=== PATIENT | male | born 1980 | race Caucasian/White ===

== ENCOUNTER 2024-08-19 01:47 | Observation (INO) ==
[2024-08-19 02:18] LABS: Basophils # (auto) 0.06 K/uL (0.00-0.20); Basophils % (auto) 0.5 %; Eosinophils # (auto) 0.36 K/uL (0.00-0.50); Eosinophils % (auto) 3.2 %; Hematocrit (blood only) 45.1 % (42.0-52.0); Hemoglobin 15.7 g/dl (14.0-18.0); Immature Granulocytes # (auto) 0.03 K/uL (0.01-0.20); Immature Granulocytes % (auto) 0.3 %; Lymphocytes # (auto) 2.62 K/uL (1.20-3.40); Lymphocytes % (auto) 23.4 %; Mean Corpuscular Hgb Conc 34.8 g/dL (32.0-36.0); Mean Platelet Volume 9.3 fL (9.4-12.4); Monocytes # (auto) 0.78 K/uL (0.11-0.59); Neutrophils # (auto) 7.35 K/uL (1.40-6.50); Neutrophils % (auto) 65.6 %; Platelet Count 357 K/uL (130-400); RDW Coefficient of Variation 12.2 % (11.5-14.5); RDW Standard Deviation 39.8 fL (36.4-46.3); Red Blood Count 5.07 M/uL (4.70-6.10)
[2024-08-19] MEDS: MoRPHine SULFATE 4 MG/ML 1 ML CARP\\VIAL IV PRN (02:21)
[2024-08-19] MEDS: ONDANSETRON INJ 2 MG/ML 2 ML VIAL IV STA (02:21)
[2024-08-19] MEDS: OPTIRAY 320 100ml IV ONE (02:32)
[2024-08-19 02:36] LABS: iSTAT Creatinine 0.8 mg/dl (0.6-1.3); iSTAT Hemoglobin 15.6 g/dl (14.0-18.0); iSTAT Ionized Calcium 1.23 mmol/l (1.12-1.32); iSTAT Potassium 3.9 mmol/L (3.3-5.0)
[2024-08-19 02:42] LABS: Albumin Globulin Ratio 1.5 (0.9-2); Albumin Level 4.5 gm/dl (3.4-5.0); BUN Creatinine Ratio 18.2 (10-20); Bilirubin,Total 0.4 mg/dl (0.2-1.0); Calcium 9.5 mg/dl (8.6-10.3); Globulin 3.1 gm/dl (2.5-4.0); Potassium 3.9 mmol/L (3.5-5.1); Total Protein 7.6 gm/dl (6.0-8.3)
[2024-08-19 02:48] LABS: Troponin I High Sensitivity 4.8 pg/ml (0-20)
[2024-08-19] MEDS: PANTOprazole 40 MG in SYRINGE 0 ML IV ONE (03:03)
--- NOTE | 2024-08-19 05:32 | Emergency Department Note ---
History of Present Illness General Chief complaint: Chest Pain Stated complaint: CHEST PAIN AND BACK,HARD TO BREATHE Time Seen by Provider: 08/19/24 01:50 History of Present Illness Maximum Pain Intensity: 7 This is a 43-year-old male presenting to the emergency department for evaluation of chest and abdominal pain. Patient was seen essentially yesterday in the ER with identical complaints. He had blood work at that time and was offered CT scan, but did not feel well after medication and was discharged home. Patient states that over the past 24 hours he has had some intermittent return of pain that is primarily across the upper abdomen. This is both left and right sided. It is difficult for him to determine if food improves or worsen symptoms. His discomfort is rated a 7/10. He does not take medication on a regular basis. He is nauseated without vomiting. No difficulty using the bathroom. Home Medications Medication Instructions Recorded Confirmed Type multivitamin (Daily Multi-Vitamin 1 tab PO QAM 06/07/21 08/17/24 History tablet) Allergies Allergy/AdvReac Type Severity Reaction Status Date / Time cat dander Allergy Intermediate sneezing, Unverified 08/17/24 23:33 itchy watery eyes strawberry Allergy Intermediate Hives Unverified 08/17/24 23:33 Past Med/Surg History Problem List (Updated 08/19/24 @ 07:04 by Cong Duarte PA-C) Upper abdominal pain (Acute) Acute cholecystitis (Acute) Chest pain (Acute) Abdominal pain (Acute) Medical History No significant past medical history Surgical History No history of previous surgery Social History Smoking Status: Current every day smoker Tobacco Type: Cigarettes Preferred Language: [place] Island[place] Feels Safe at Home: Yes Review of Systems A total of 10 systems reviewed and were otherwise negative Physical Exam Vital Signs Vital Signs - 24 hr 08/19/24 01:49 08/19/24 01:57 08/19/24 02:07 Temperature 36.8 C Temperature Source Temporal Artery Scan Pulse Rate 77 66 Pulse Rate [Apical] Respiratory Rate 19 Respiratory Effort / Characteristics Non-Labored Spontaneous Respiratory Depth Normal Respiratory Pattern Blood Pressure 196/106 H Blood Pressure [Right Arm] Blood Pressure Mean 136 Blood Pressure Mean [Right Arm] Blood Pressure Position [Right Arm] Pulse Oximetry 97 94 Oxygen Delivery Method Room Air Room Air Oxygen Flow Rate Sepsis Recent Fever Within 48 Hours No Sepsis New/Unexplained Change in Mental Status N/A Sepsis Action Taken by Nursing No Action Required 08/19/24 02:47 08/19/24 03:04 08/19/24 03:28 Temperature Temperature Source Pulse Rate Pulse Rate [Apical] 74 Respiratory Rate 18 Respiratory Effort / Characteristics Non-Labored Spontaneous Respiratory Depth Normal Respiratory Pattern Regular Blood Pressure Blood Pressure [Right Arm] 148/91 H Blood Pressure Mean Blood Pressure Mean [Right Arm] 110 Blood Pressure Position [Right Arm] Sitting Pulse Oximetry 92 94 88 L Oxygen Delivery Method Room Air Room Air Room Air Oxygen Flow Rate Sepsis Recent Fever Within 48 Hours Sepsis New/Unexplained Change in Mental Status Sepsis Action Taken by Nursing 08/19/24 03:29 08/19/24 04:44 08/19/24 05:00 Temperature Temperature Source Pulse Rate Pulse Rate [Apical] 50 L Respiratory Rate 18 Respiratory Effort / Characteristics Non-Labored Spontaneous Respiratory Depth Normal Respiratory Pattern Regular Blood Pressure Blood Pressure [Right Arm] 150/91 H Blood Pressure Mean Blood Pressure Mean [Right Arm] 110 Blood Pressure Position [Right Arm] Lying Pulse Oximetry 96 94 87 L Oxygen Delivery Method Nasal Cannula Room Air Room Air Oxygen Flow Rate 2 Sepsis Recent Fever Within 48 Hours Sepsis New/Unexplained Change in Mental Status Sepsis Action Taken by Nursing 08/19/24 05:03 08/19/24 06:09 Temperature Temperature Source Pulse Rate 50 L Pulse Rate [Apical] Respiratory Rate Respiratory Effort / Characteristics Respiratory Depth Respiratory Pattern Blood Pressure Blood Pressure [Right Arm] Blood Pressure Mean Blood Pressure Mean [Right Arm] Blood Pressure Position [Right Arm] Pulse Oximetry 96 Oxygen Delivery Method Nasal Cannula Oxygen Flow Rate 2 Sepsis Recent Fever Within 48 Hours Sepsis New/Unexplained Change in Mental Status Sepsis Action Taken by Nursing VITALS: Vitals are noted on the nurse's note and reviewed by myself. Vital signs stable. GENERAL: Well-developed, well-nourished, white male, who is in no acute distress and resting comfortably. Patient is cooperative with the examination. HEAD: Normocephalic atraumatic. EARS: External ear normal. External auditory canals clear, tympanic membranes pearly arnold without erythema or effusion bilaterally. EYES: Pupils equal round and reactive to light and accommodation. Conjunctivae without injection, sclerae without icterus. Extraocular movements intact. NOSE: Patent, turbinates without inflammation or discharge. MOUTH: Mucous membranes moist. Tonsils are not enlarged. Pharynx without erythema, blood, or exudate. Uvula midline. Airway patent. NECK: Supple without nuchal rigidity. No lymphadenopathy. No thyromegaly. Cervical spine is nontender. HEART: Regular rate and rhythm without murmurs gallops or rubs. LUNGS: Clear to auscultation bilaterally without wheezes, rales or rhonchi. No retractions or accessory muscle use. ABDOMEN: Positive normal bowel sounds x 4. Soft, nontender, without masses or organomegaly. No guarding or rebound tenderness. MUSCULOSKELETAL: No muscle atrophy, erythema, or edema noted. Full range of motion in all extremities. Course Administered Medications Morphine Sulfate (Morphine Sulfate 4 Mg/Ml 1 Ml Carp\Vial) 4 mg IV Q30M PRN PRN Reason: Pain Stop: 09/02/24 01:56 Last Admin: 08/19/24 02:21 Dose: 4 mg Documented By: CARLOS MANUEL Discontinued Medications Pantoprazole Sodium 40 mg/ (Syringe) 10 mls @ 5 mls/min IV NOW ONE Stop: 08/19/24 01:58 Last Admin: 08/19/24 03:03 Dose: 5 mls/min Documented By: CARLOS MANUEL Ioversol (Optiray 320 100ml) 100 ml IV ONCE ONE Stop: 08/19/24 02:32 Last Admin: 08/19/24 02:32 Dose: 93 ml Documented By: GLADIS Ondansetron HCl (Ondansetron Inj 2 Mg/Ml 2 Ml Vial) 4 mg IV NOW STA Stop: 08/19/24 01:58 Last Admin: 08/19/24 02:21 Dose: 4 mg Documented By: CARLOS MANUEL Medical Decision Making Differential Diagnosis Differential diagnosis: Etiologies such as biliary colic, cholecystitis, hepatitis, pancreatitis, cardiac disease, pancreatitis, gastritis, peptic ulcer disease, appendicitis, cystitis, diverticulitis, mesenteric ischemia, inflammatory bowel disease, ileus, bowel obstruction, testicular/adnexal torsion, aortic pathology, shingles, as well as others were considered Laboratory Data 08/19/24 01:55 08/19/24 01:55 Lab Results 08/19/24 08/19/24 Range/Units 01:55 02:03 WBC 11.20 H (4.8-10.8) K/ul RBC 5.07 (4.70-6.10) M/uL Hgb 15.7 (14.0-18.0) g/dl POC Hgb 15.6 (14.0-18.0) g/dl Hct 45.1 (42.0-52.0) % POC Hct 46 (42-52) % MCV 89.0 (80.0-100.0) fL MCH 31.0 (25.0-34.0) pg MCHC 34.8 (32.0-36.0) g/dL RDW Std Deviation 39.8 (36.4-46.3) fL RDW Coeff of Leander 12.2 (11.5-14.5) % Plt Count 357 (130-400) K/uL MPV 9.3 L (9.4-12.4) fL Immature Gran % (Auto) 0.3 % Neut % (Auto) 65.6 % Lymph % (Auto) 23.4 % Henderson % (Auto) 7.0 % Eos % (Auto) 3.2 % Baso % (Auto) 0.5 % Neut # (Auto) 7.35 H (1.40-6.50) K/uL Lymph # (Auto) 2.62 (1.20-3.40) K/uL Henderson # (Auto) 0.78 H (0.11-0.59) K/uL Eos # (Auto) 0.36 (0.00-0.50) K/uL Baso # (Auto) 0.06 (0.00-0.20) K/uL Immature Gran # (Auto) 0.03 (0.01-0.20) K/uL POC Sodium 139 (135-144) mmol/L Sodium 138 (136-145) mmol/L POC Potassium 3.9 (3.3-5.0) mmol/L Potassium 3.9 (3.5-5.1) mmol/L POC Chloride 103 (101-112) mmol/L Chloride 103 (98-107) mmol/L Carbon Dioxide 28 (21-32) mmol/L POC Total CO2 25 (24-31) mmol/L Anion Gap 7 (3-11) POC Anion Gap 16.0 (16-25) mmol/L POC BUN 15 (7-18) mg/dl BUN 16 (6-23) mg/dl Creatinine 0.88 (0.6-1.4) mg/dl POC Creatinine 0.8 (0.6-1.3) mg/dl Est Cr Clr Drug Dosing 126.0 ml/min eGFR 108.07 BUN/Creatinine Ratio 18.2 (10-20) Glucose 114 H (70-99(Fasting)) mg/dl POC Glucose (other) 117 H (70-99) mg/dl Calcium 9.5 (8.6-10.3) mg/dl POC Ioniz Calcium Alberto 1.23 (1.12-1.32) mmol/l Total Bilirubin 0.4 (0.2-1.0) mg/dl AST 17 (13-39) U/L ALT 26 (7-52) U/L Alkaline Phosphatase 67 (34-104) U/L Troponin I High Sens 4.8 (0-20) pg/ml Total Protein 7.6 (6.0-8.3) gm/dl Albumin 4.5 (3.4-5.0) gm/dl Globulin 3.1 (2.5-4.0) gm/dl Albumin/Globulin Ratio 1.5 (0.9-2) Lipase 30 (11-82) U/L Imaging Data Radiologist's Impression: Abdomen/Pelvis CT 08/19/24 01:[address] WITH IV CONTRAST CT DOSE: 2473.17 mGy.cm HISTORY: Acute epigastric abdominal pain atypical epigastric/chest pain TECHNIQUE: Multiaxial CT images of the abdomen and pelvis were performed following the IV administration of 93 cc of Optiray, A dose lowering technique was utilized adhering to the principles of ALARA. COMPARISON STUDY: Chest CT of same day FINDINGS: 3 mm solid nodule of the right middle lobe on image 4 is likely benign. Tiny right Bochdalek hernia is fat filled. Cholelithiasis with gallbladder wall thickening and pericholecystic edema. Gallstones are seen within the neck of the gallbladder. No biliary ductal dilation. The liver, spleen, pancreas, kidneys, and adrenal glands are within normal limits. Probable small duodenal diverticulum. Colonic diverticulosis. Normal appendix. No bowel wall thickening or obstruction. The pelvic organs are unremarkable. No suspicious lytic or blastic osseous lesions. IMPRESSION: Cholelithiasis with findings suggestive of acute cholecystitis. ACT 112: Negative or not required by law. The above report was generated using voice recognition software. It may contain grammatical, syntax or spelling errors. Electronically signed by: Nathaniel Monaco M.D. 08/19/2024 7:[address] 08/19/24 01:57 CT OF THE CHEST WITH IV CONTRAST CLINICAL HISTORY: atypical epigastric/chest pain COMPARISON STUDY: Chest radiograph August 17, 2024. TECHNIQUE: Following IV administration of 93 mL of Optiray, helical axial images of the chest were obtained. Sagittal and coronal reconstructions were viewed as well as maximal intensity projections on an independent 3-D workstation. Automated exposure control was utilized for the study. A dose lowering technique was utilized adhering to the principles of ALARA. FINDINGS: No enlarged axillary, mediastinal lymph nodes are present. Size of the heart is normal. There is no thoracic aortic dissection. No pneumothorax or pleural effusion is present. There is no consolidation to suggest pneumonia. A 4 mm right middle lobe nodule on image 159 of 261 is likely benign. Subpleural opacities favor atelectasis. There are no suspicious pulmonary nodules. The abdomen and pelvis CT will be reported separately. Cholelithiasis is noted with gallbladder wall thickening and adjacent stranding. IMPRESSION: 1. No acute findings within the chest. 2. Findings suggestive of acute cholecystitis better depicted on the CT of the abdomen and pelvis which will be reported separately. ACT 112: Negative or not required by law. Electronically signed by: Dami Gomez M.D. 08/19/2024 6:33 AM Gallbladder Ultrasound 08/19/24 02:46 US gallbladder CLINICAL HISTORY: upper abd pain, stone on CT in [place] COMPARISON STUDY: CT of the abdomen and pelvis performed earlier today. TECHNIQUE: Sonography of the right upper quadrant was performed. FINDINGS: Hepatic echogenicity is mildly increased. No hepatic lesions and there is no biliary ductal dilatation. The common bile duct measures 4 mm in caliber. There are stones within the gallbladder. The gallbladder is mildly distended. There is mild gallbladder wall thickening. The wall measures 4 mm in thickness. Sonographic Roy sign could not be assessed for given pain medication administration. The pancreas is largely obscured by overlying bowel gas. No abnormalities identified by sonography. There is no right hydronephrosis. IMPRESSION: Cholelithiasis with gallbladder wall thickening and mild gallbladder distention. The findings suggest acute cholecystitis. ACT 112: Negative or not required by law. Electronically signed by: Dami Gomez M.D. 08/19/2024 6:35 AM MDM Narrative Physical exam and history were performed. Nursing notes, EMR, and Medication List were personally reviewed. No social concerns were identified as barriers to patients care. Patient appears to have pain across his upper abdomen. The location is somewhat difficult to determine, and he certainly is not tender on palpation. That pain may be lower chest as well. He was offered CT scan at his earlier ER visit, but felt well and declined. He essentially is here for the CT scan. IV access was established and labs were obtained. Patient was given IV morphine, IV Protonix, and IV Zofran. He was sent to CT scan for imaging of his chest and belly. Patient blood work is as above and was reviewed. He does not have a significantly elevated white blood cell count, gross anemia, bandemia, or significant electrolyte imbalance. Lipase and transaminases not diagnostic. CT scan was reviewed by myself, and patient does appear to have a large gallstone in the gallbladder on CT. Prior to formal radiology read I did send the patient to ultrasound for further biliary studies. CT scans were ultimately reviewed by radiology, and ultrasound was reviewed by myself and radiology. This does confirm acute cholecystitis, which clinically does correlate with the patient's symptoms. Case was discussed with the on-call surgeon, Dr. Mcgarry, who will evaluate the patient here in the ER. Please see the surgical team's note for further patient care, plan, and disposition. The chart was completed utilizing [employer] Speech Voice Recognition Software. Grammatical errors, random word insertions, pronoun errors, and incomplete sentences are an occasional consequence of this system due to software limitations, ambient noise, and hardware issues. Any formal questions or concerns about the content, text, or information contained within the body of this dictation should be directly addressed to the provider for clarification. Impression & Plan Acute cholecystitis, Upper abdominal pain Discharge Plan Visit Data Chief Complaint: Chest Pain Stated Complaint: CHEST PAIN AND BACK,HARD TO BREATHE ED Provider: Benedicto Ackerman ED Midlevel Provider: Cong Duarte Discharge Problem: Acute cholecystitis, Upper abdominal pain Forms Stand Alone Forms: My [facility] Prescriptions Prescriptions: No Action multivitamin [Daily Multi-Vitamin] Tablet 1 tab PO QAM Referrals Referrals: PCP,NO [Primary Care Provider] -
--- NOTE | 2024-08-19 06:35 | CT Scan Report ---
CT OF THE CHEST WITH IV CONTRAST CLINICAL HISTORY: atypical epigastric/chest pain COMPARISON STUDY: Chest radiograph August 17, 2024. TECHNIQUE: Following IV administration of 93 mL of Optiray, helical axial images of the chest were o btained. Sagittal and coronal reconstructions were viewed as well as maximal intensity projections o n an independent 3-D workstation. Automated exposure control was utilized for the study. A dose low ering technique was utilized adhering to the principles of ALARA. FINDINGS: No enlarged axillary, mediastinal lymph nodes are present. Size of the heart is normal. Th ere is no thoracic aortic dissection. No pneumothorax or pleural effusion is present. There is no con solidation to suggest pneumonia. A 4 mm right middle lobe nodule on image 159 of 261 is likely benign . Subpleural opacities favor atelectasis. There are no suspicious pulmonary nodules. The abdomen and pelvis CT will be reported separately. Cholelithiasis is noted with gallbladder wall thickening and a djacent stranding. IMPRESSION: 1. No acute findings within the chest. 2. Findings suggestive of acute cholecystitis better depicted on the CT of the abdomen and pelvis whi ch will be reported separately. ACT 112: Negative or not required by law. Electronically signed by: Dami Gomez M.D. 08/19/2024 6:33 AM
--- NOTE | 2024-08-19 06:36 | Ultrasound Report ---
US gallbladder CLINICAL HISTORY: upper abd pain, stone on CT in [place] COMPARISON STUDY: CT of the abdomen and pelvis performed earlier today. TECHNIQUE: Sonography of the right upper quadrant was performed. FINDINGS: Hepatic echogenicity is mildly increased. No hepatic lesions and there is no biliary ductal dilatation. The common bile duct measures 4 mm in caliber. There are stones within the gallbladder. The gallbladder is mildly distended. There is mild gallbladder wall thickening. The wall measures 4 m m in thickness. Sonographic Roy sign could not be assessed for given pain medication administratio n. The pancreas is largely obscured by overlying bowel gas. No abnormalities identified by sonography . There is no right hydronephrosis. IMPRESSION: Cholelithiasis with gallbladder wall thickening and mild gallbladder distention. The fin dings suggest acute cholecystitis. ACT 112: Negative or not required by law. Electronically signed by: Dami Gomez M.D. 08/19/2024 6:35 AM
--- NOTE | 2024-08-19 07:02 | CT Scan Report ---
ABDOMEN AND PELVIS CT WITH IV CONTRAST CT DOSE: 2473.17 mGy.cm HISTORY: Acute epigastric abdominal pain atypical epigastric/chest pain TECHNIQUE: Multiaxial CT images of the abdomen and pelvis were performed following the IV administrat ion of 93 cc of Optiray, A dose lowering technique was utilized adhering to the principles of ALARA. COMPARISON STUDY: Chest CT of same day FINDINGS: 3 mm solid nodule of the right middle lobe on image 4 is likely benign. Tiny right [place] hernia is fat filled. Cholelithiasis with gallbladder wall thickening and pericholecystic edema. Gallstones are seen within the neck of the gallbladder. No biliary ductal dilation. The liver, spleen, pancreas, kidneys, and a drenal glands are within normal limits. Probable small duodenal diverticulum. Colonic diverticulosis. Normal appendix. No bowel wall thickening or obstruction. The pelvic organs are unremarkable. No venkata picious lytic or blastic osseous lesions. IMPRESSION: Cholelithiasis with findings suggestive of acute cholecystitis. ACT 112: Negative or not required by law. The above report was generated using voice recognition software. It may contain grammatical, syntax o r spelling errors. Electronically signed by: Nathaniel Monaco M.D. 08/19/2024 7:00 AM
[2024-08-19] MEDS: cefOXitin 2,000 MG/60 ML BAG IV STA (07:56)
--- NOTE | 2024-08-19 08:35 | History & Physical Report ---
Date of Service August 19, 2024 Assessment & Plan (1) Acute cholecystitis: (2) Upper abdominal pain: Plan: 43 year old male with 1 day history of upper abdominal pain with ultrasound and CT scan of abdomen and pelvis showing acute calculous cholecystitis. Mild leukocytosis, afebrile, t. bili and lfts unremarkable. Abdominal exam with RUQ tenderness however no guarding. Discussed with patient imaging and lab findings consistent with acute cholecystitis. Discussed indicaiton for cholecystectomy, risks of procedure, expected recovery time. Will proceed with laparoscopic cholecystectomy with Dr. Mcgarry today. Informed consent will be obtained. Keep NPO. Continue IV Cefoxitin. Dr. Mcgarry has seen and examined patient, see addendum for further recommendations/plan. History of Present Illness Chief Complaint: Abdominal pain Primary Care Provider: NO PCP Simon is a 43 year old otherwise healthy male who presented to ED initially yesterday with upper abdominal/chest pain that started at 6 am. Had pain medication and pain improved and was discharged. Presented back to ED this morn ing with persistent pain that is not improving. Denies fever, chills, nausea, vomiting, changes in bowel habits, diarrhea, constipation, blood in stools, black/tarry stools, difficulty urinating. Describes pain as sharp stabbing constant pain in upper abdomen bilaterally with some radiation to around his back. No history of gallbladder problems. No blood thinning agents. No history of abdominal surgery. Pain was 8/10 on arrival now 5/10 after pain medication. Allergies Allergy/AdvReac Type Severity Reaction Status Date / Time cat dander Allergy Intermediate sneezing, Unverified 08/19/24 09:21 itchy watery eyes strawberry Allergy Intermediate Hives Unverified 08/19/24 09:21 Home Medications Medication Instructions Recorded Confirmed Type multivitamin (Daily Multi-Vitamin 1 tab PO QAM 06/07/21 08/19/24 History tablet) Past Med/Surg History Problem List (Updated 08/19/24 @ 09:29 by Sp Blake MD) Encounter for pre-operative examination Upper abdominal pain (Acute) Acute cholecystitis (Acute) Chest pain (Acute) Abdominal pain (Acute) Medical History Hypertension No significant past medical history Surgical History No history of previous surgery Social History Smoking Status: Current every day smoker Tobacco Type: Cigarettes Hx Alcohol Use: Yes Alcohol type: beer and hard liquor Hx Substance Use: No Preferred Language: Maldivian Feels Safe at Home: Yes Review of Systems Review of Systems: All systems reviewed & are unremarkable except as noted in HPI & below Physical Exam Constitutional: WD/WN, vitals as above + obese, cooperative and comfortable; no acute distress and not ill appearing Respiratory: normal respiratory effort, lungs clear to auscultation Cardiovascular: RRR, no murmur, no edema Gastrointestinal (Abdomen): Inspection/Auscultation: abdomen normal to i nspection; abdomen not distended Percussion/Palpation: + abdomen tender (RUQ on deep palpation) and abdomen soft; no guarding, abdomen not rigid and abdomen not firm Skin: no rashes, warm and dry no jaundice Psychiatric: A+Ox3, euthymic affect Results & Data Results & Data Vital Signs (Past 12 Hours) Vital Signs Temp Pulse Pulse Resp BP BP Pulse Ox 08/19/24 07:00 52 L 15 142/81 H 95 08/19/24 06:09 50 L 08/19/24 05:03 96 08/19/24 05:00 87 L 08/19/24 04:44 50 L 18 150/91 H 94 08/19/24 03:29 96 08/19/24 03:28 88 L 08/19/24 03:04 74 18 148/91 H 94 08/19/24 02:47 92 08/19/24 02:07 94 08/19/24 01:57 66 08/19/24 01:49 36.8 C 77 19 196/106 H 97 O2 Del Method O2 Flow Rate 08/19/24 07:00 Room Air 08/19/24 06:09 08/19/24 05:03 Nasal Cannula 2 08/19/24 05:00 Room Air 08/19/24 04:44 Room Air 08/19/24 03:29 Nasal Cannula 2 08/19/24 03:28 Room Air 08/19/24 03:04 Room Air 08/19/24 02:47 Room Air 08/19/24 02:07 Room Air 08/19/24 01:57 08/19/24 01:49 Room Air Laboratory Results 08/19/24 08/19/24 Range/Units 02:03 01:55 WBC 11.20 H (4.8-10.8) K/ul RBC 5.07 (4.70-6.10) M/uL Hgb 15.7 (14.0-18.0) g/dl POC Hgb 15.6 (14.0-18.0) g/dl Hct 45.1 (42.0-52.0) % POC Hct 46 (42-52) % MCV 89.0 (80.0-100.0) fL MCH 31.0 (25.0-34.0) pg MCHC 34.8 (32.0-36.0) g/dL RDW Std Deviation 39.8 (36.4-46.3) fL RDW Coeff of Leander 12.2 (11.5-14.5) % Plt Count 357 (130-400) K/uL MPV 9.3 L (9.4-12.4) fL Immature Gran % (Auto) 0.3 % Neut % (Auto) 65.6 % Lymph % (Auto) 23.4 % [place] % (Auto) 7.0 % Eos % (Auto) 3.2 % Baso % (Auto) 0.5 % Neut # (Auto) 7.35 H (1.40-6.50) K/uL Lymph # (Auto) 2.62 (1.20-3.40) K/uL [place] # (Auto) 0.78 H (0.11-0.59) K/uL Eos # (Auto) 0.36 (0.00-0.50) K/uL Baso # (Auto) 0.06 (0.00-0.20) K/uL Immature Gran # (Auto) 0.03 (0.01-0.20) K/uL POC Sodium 139 (135-144) mmol/L Sodium 138 (136-145) mmol/L POC Potassium 3.9 (3.3-5.0) mmol/L Potassium 3.9 (3.5-5.1) mmol/L POC Chloride 103 (101-112) mmol/L Chloride 103 (98-107) mmol/L Carbon Dioxide 28 (21-32) mmol/L POC Total CO2 25 (24-31) mmol/L Anion Gap 7 (3-11) POC Anion Gap 16.0 (16-25) mmol/L POC BUN 15 (7-18) mg/dl BUN 16 (6-23) mg/dl Creatinine 0.88 (0.6-1.4) mg/dl POC Creatinine 0.8 (0.6-1.3) mg/dl Est Cr Clr Drug Dosing 126.0 ml/min eGFR 108.07 BUN/Creatinine Ratio 18.2 (10-20) Glucose 114 H (70-99(Fasting)) mg/dl POC Glucose (other) 117 H (70-99) mg/dl Calcium 9.5 (8.6-10.3) mg/dl POC Ioniz Calcium Alberto 1.23 (1.12-1.32) mmol/l Total Bilirubin 0.4 (0.2-1.0) mg/dl AST 17 (13-39) U/L ALT 26 (7-52) U/L Alkaline Phosphatase 67 (34-104) U/L Troponin I High Sens 4.8 (0-20) pg/ml Total Protein 7.6 (6.0-8.3) gm/dl Albumin 4.5 (3.4-5.0) gm/dl Globulin 3.1 (2.5-4.0) gm/dl Albumin/Globulin Ratio 1.5 (0.9-2) Lipase 30 (11-82) U/L Diagnostic Findings US gallbladder CLINICAL HISTORY: upper abd pain, stone on CT in [place] COMPARISON STUDY: CT of the abdomen and pelvis performed earlier today. TECHNIQUE: Sonography of the right upper quadrant was performed. FINDINGS: Hepatic echogenicity is mildly increased. No hepatic lesions and there is no biliary ductal dilatation. The common bile duct measures 4 mm in caliber. There are stones within the gallbladder. The gallbladder is mildly distended. There is mild gallbladder wall thickening. The wall measures 4 mm in thickness. Sonographic Roy sign could not be assessed for given pain medication administration. The pancreas is largely obscured by overlying bowel gas. No abnormalities identified by sonography. There is no right hydronephrosis. IMPRESSION: Cholelithiasis with gallbladder wall thickening and mild gallbladder distention. The findings suggest acute cholecystitis. ABDOMEN AND PELVIS CT WITH IV CONTRAST CT DOSE: 2473.17 mGy.cm HISTORY: Acute epigastric abdominal pain atypical epigastric/chest pain TECHNIQUE: Multiaxial CT images of the abdomen and pelvis were performed following the IV administration of 93 cc of Optiray, A dose lowering technique was utilized adhering to the principles of ALARA. COMPARISON STUDY: Chest CT of same day FINDINGS: 3 mm solid nodule of the right middle lobe on image 4 is likely benign. Tiny right Bochdalek hernia is fat filled. Cholelithiasis with gallbladder wall thickening and pericholecystic edema. Gallstones are seen within the neck of the gallbladder. No biliary ductal dilation. The liver, spleen, pancreas, kidneys, and adrenal glands are within normal limits. Probable small duodenal diverticulum. Colonic diverticulosis. Normal appendix. No bowel wall thickening or obstruction. The pelvic organs are unremarkable. No suspicious lytic or blastic osseous lesions. IMPRESSION: Cholelithiasis with findings suggestive of acute cholecystitis. Code Status & VTE Plan VTE Prophylaxis Plan VTE Prophylaxis will be ordered: Yes Supervising Physician Co-Signing Physician Notes I have seen and examined the patient personally and agree with the above assessment plan. In brief he is pain in his right upper abdomen starting yesterday. He denies fevers and chills. Ultrasound and CT scan demonstrate acute cholecystitis. I discussed risks and benefits of laparoscopic cholecystectomy. He is agreeable to proceed. Consent has been obtained. Will take him to the operating room at the earliest convenience
[2024-08-19] MEDS ORDERED: PROMETHAZINE HCL 6.25 MG in SODIUM CHLORIDE 0.9% 50 ML IV PRN (09:28)
[2024-08-19] MEDS ORDERED: ATROPINE SULFATE 0.1 MG/ML 10ML SYR IV PRN (09:28)
[2024-08-19] MEDS ORDERED: ONDANSETRON INJ 2 MG/ML 2 ML VIAL IV PRN ×2 (09:28→13:33)
[2024-08-19] MEDS ORDERED: ePHEDrine sulfate 50 MG/ML AMP IV PRN (09:28)
[2024-08-19] MEDS ORDERED: PROPOFOL IV EMULSION 10 MG/ML 20 ML VIAL IV ONE (09:29)
[2024-08-19] MEDS ORDERED: LIDOCAINE 2% 2 ML VIAL/AMP(20MG/ML) INFIL ONE (09:29)
[2024-08-19] MEDS ORDERED: DEXAMETHASONE SOD INJ 4 MG/ML VIAL ONE (09:29)
[2024-08-19] MEDS ORDERED: ONDANSETRON INJ 2 MG/ML 2 ML VIAL ONE (09:29)
[2024-08-19] MEDS ORDERED: MIDAZOLAM HCL 1 MG/ML 2ML VIAL ONE (09:30)
[2024-08-19] MEDS ORDERED: fentaNYL citrate PF 100 MCG/2 ML VIAL ONE ×2 (09:30→10:16)
--- NOTE | 2024-08-19 09:30 | Anesthesiology Consultation ---
Date of Service August 19, 2024 Assessment & Plan (1) Encounter for pre-operative examination: Chart Review Chart Review: Acceptable Risk for Surgery History Surgery Operation Date: 08/19/24 08:40 Proposed Procedures p Laparoscopic Cholecystectomy - Gonzalo Mcgarry MD Height/Weight Height: 5 ft 7 in Weight: 111 kg Allergies Allergy/AdvReac Type Severity Reaction Status Date / Time cat dander Allergy Intermediate sneezing, Unverified 08/19/24 09:21 itchy watery eyes strawberry Allergy Intermediate Hives Unverified 08/19/24 09:21 Medications Home Medications Medication Instructions Recorded Confirmed Last Taken multivitamin (Daily Multi-Vitamin 1 tab PO QAM 06/07/21 08/19/24 08/18/24 09:00 tablet) Active Medications Generic Name Dose Route Start Last Admin Trade Name Freq PRN Reason Stop Dose Admin Morphine Sulfate 4 mg 08/19/24 01:57 08/19/24 02:21 Morphine Sulfate 4 Mg/Ml 1 Ml Carp\Vial IV 09/02/24 01:56 4 mg Q30M PRN Administration Pain Past Medical History Medical History Hypertension No significant past medical history Past Surgical History Surgical History No history of previous surgery Social History Smoking Status: Current every day smoker Physical Exam Vital Signs Last Vital Signs Temp 36.8 C 08/19/24 01:49 Pulse 49 L 08/19/24 09:00 Resp 16 08/19/24 09:00 BP 134/87 08/19/24 09:00 Pulse Ox 95 08/19/24 09:00 O2 Del Method Room Air 08/19/24 09:08 O2 Flow Rate 2 08/19/24 05:03 Testing Laboratory Results 08/19/24 01:55 08/19/24 01:55 08/19/24 02:03 POC Glucose (other) 117 H Electrocardiogram Date: 08/19/24 Findings: + SB @ (57) Chest X-Ray Date: 08/17/24 Findings: + NAD
[2024-08-19] MEDS ORDERED: ROCURONIUM BROMIDE 10 MG/ML 5 ML VIAL IV ONE (09:31)
[2024-08-19] MEDS ORDERED: LARYING-O-JET KIT (LTA) ONE (09:32)
[2024-08-19] MEDS ORDERED: SUGAMMADEX SODIUM 200 MG/2 ML VIAL IV ONE (10:13)
[2024-08-19] MEDS: BUPIVACAINE/EPINEPHRINE 0.25% 1:200,000 30 ML VIAL ONE (10:45)
[2024-08-19] MEDS ORDERED: PHENYLEPHRINE 100MCG/ML 10ML SYR IV ONE (10:45)
--- NOTE | 2024-08-19 11:29 | Post Operative Brief Note ---
Immediate Post Op Note Date of Surgery August 19, 2024 Pre & Post Diagnosis Operation Date: 08/19/24 08:40 Pre-Op Diagnosis: Acute cholecystitis, upper abdominal pain Post-Op Diagnosis: Acute cholecystitis, upper abdominal pain I identified the patient and participated in the time-out.: Yes Procedure Operation Date: 08/19/24 08:40 Actual Procedures p Laparoscopic Cholecystectomy - Gonzalo Mcgarry MD Surgeon Gonzalo Mcgarry MD Porcelain Waxer JENISE Champagne assisted with tissue retraction, camera op, closure Estimated Blood Loss 5 Findings Consistent with Post-Op Diagnosis
--- NOTE | 2024-08-19 11:30 | Operative Report ---
Post Operative Report Pre & Post Diagnosis Operation Date: 08/19/24 08:40 Pre-Op Diagnosis: Acute cholecystitis, upper abdominal pain Post-Op Diagnosis: Acute cholecystitis, upper abdominal pain I identified the patient and participated in the time-out.: Yes Procedure Operation Date: 08/19/24 08:40 Actual Procedures p Laparoscopic Cholecystectomy - Gonzalo Mcgarry MD Surgeon Gonzalo Mcgarry MD Aluminum Boats Assembler JENISE Champagne assisted with tissue retraction, camera op, closure Estimated Blood Loss 5 Findings Consistent with Post-Op Diagnosis acute cholecystitis Specimens gallbladder Drains none Anesthesia Type General Complications none Description of Procedure the patient was taken to the operating room, and placed supine on the operating table. A timeout was performed, perioperative antibiotics were administered, SCD boots were placed. After adequate anesthesia and analgesia was obtained, the abdomen was prepped and draped in the normal sterile fashion. Local anesthetic was injected into and around the proposed incision sites. An incision was made with a 15 blade scalpel in the supraumbilical region and carried down to the level of the fascia. The fascia was grasped with a trach hook, and a varies needle was used to enter the abdominal cavity. The abdomen was insufflated to a pressure of 15 mmHg, and a 11 mm trocar was placed in this location. A 10 mm, 30 degree laparoscope was placed into the abdominal cavity, and the abdomen was surveyed. Two 5 mm trochars were placed along the right costal margin, and one 5 mm trocar was placed in the subxiphoid region under direct visualization. The gallbladder was grasped and retracted cephalad and laterally, exposing the triangle of Calot. Dissection began in the triangle with a combination of blunt dissection with the [place] dissector, and judicious use of the hook cautery. The cystic duct and cystic artery were dissected free circumferentially, and a critical view of safety was obtained. The cystic duct and cystic artery were clipped and transected, and the gallbladder was removed from the gallbladder fossa with the hook cautery. The camera was switched to a 5 mm, the gallbladder was placed in an Endo Catch bag, and removed via the supraumbilical port site. The camera was switched back to the 10 mm camera, and the abdomen was surveyed again. Hemostasis was checked and attended, and was excellent. The abdomen was copiously irrigated and suctioned free. Again hemostasis was checked and was excellent. All trochars were removed under direct visualization. The abdomen was desufflated. The fascia in the 11 mm port site was closed with a 0 Vicryl suture. The skin was closed with a running 4-0 Monocryl subcuticular stitch. Dermabond was applied. The patient tolerated the procedure without complication, and was transferred in stable condition to the PACU. All instrument, needle, and sponge counts were correct at the end of the case. My freezer assistant was necessary throughout the procedure for tissue retraction, possible camera operation, and closure of the wounds. I understand that section 1842(b)(7)(D) of the Social Security act generally prohibits Medicare physician fee schedule payment for the services of assistants at surgery in teaching hospitals when qualified residents are available to furnish such services. I certify that the services for which payment is claimed were medically necessary and that no qualified resident was available to perform the services. I further understand that these services are subject to postpayment review by the Medicare carrier. I attest to the content of the Intraoperative Record and any orders documented therein. Any exceptions are noted below.
[2024-08-19] MEDS: fentaNYL citrate PF 100 MCG/2 ML VIAL IV PRN (11:40)
[2024-08-19] MEDS: LABETALOL HCL IV 5 MG/ML 20ML IV STA ×3 (12:09→12:47)
[2024-08-19] MEDS: HYDROmorphone INJ 1 MG/ML SYRINGE IV PRN (13:00)
[2024-08-19] MEDS: LABETALOL HCL IV 5 MG/ML 20ML IV ONE ×2 (13:32→13:33)
[2024-08-19] MEDS ORDERED: oxyCODONE/ACETAMINOPHEN 5mg/325mg TAB PO PRN ×2 (13:33)
[2024-08-19] MEDS ORDERED: MoRPHine SULFATE 2 MG/ML CARP IV PRN (13:33)
[2024-08-19] MEDS ORDERED: diphenhydrAMINE Capsule 25 MG CAP PO PRN (13:33)
[2024-08-19] MEDS ORDERED: PROMETHAZINE 12.5 MG/50.5 ML BAG IV PRN (13:33)
--- NOTE | 2024-08-19 14:30 | Electrocardiogram Report ---
Test Reason : Blood Pressure : */* mmHG Vent. Rate : 57 BPM Atrial Rate : 57 BPM P-R Int : 156 ms QRS Dur : 96 ms QT Int : 404 ms P-R-T Axes : 60 42 55 degrees QTcB Int : 393 ms Sinus bradycardia with sinus arrhythmia Otherwise normal ECG When compared with ECG of 18-Aug-2024 01:26, No significant change was found Confirmed by Nolan Chicas ([id number]) on 08/19/2024 2:30:15 PM Referred By: REFERRED SELF Confirmed By: Nolan Chicas
--- NOTE | 2024-08-19 15:16 | Anesthesiology Progress Note ---
Date of Service August 19, 2024 Anesthesia Post Procedure Vital Signs Vital Signs: Temp Pulse Pulse Resp BP BP Pulse Ox 08/19/24 14:45 36.6 C 72 16 147/83 H 94 08/19/24 14:14 36.9 C 90 16 132/67 94 08/19/24 13:45 36.7 C 72 16 145/92 H 90 08/19/24 13:25 65 15 129/82 92 08/19/24 13:15 72 15 132/80 92 08/19/24 13:05 73 13 151/98 H 96 08/19/24 12:55 68 12 153/91 H 94 08/19/24 12:50 71 14 145/91 H 92 08/19/24 12:47 70 164/104 H 08/19/24 12:40 72 14 146/103 H 92 08/19/24 12:35 66 18 150/98 H 92 08/19/24 12:30 72 153/101 H 08/19/24 12:30 72 18 153/101 H 93 08/19/24 12:20 69 16 159/106 H 93 08/19/24 12:10 72 18 164/101 H 92 08/19/24 12:09 72 164/104 H 08/19/24 12:00 37.2 C 74 16 164/105 H 93 08/19/24 11:50 71 16 166/102 H 92 08/19/24 11:40 68 15 164/105 H 96 08/19/24 11:30 72 12 160/105 H 97 08/19/24 11:20 70 12 167/104 H 98 08/19/24 11:15 36.0 C L 88 16 135/106 H 98 08/19/24 09:23 36.8 C 55 L 18 143/94 H 94 08/19/24 09:08 08/19/24 09:00 49 L 16 134/87 95 08/19/24 07:00 52 L 15 142/81 H 95 08/19/24 06:09 50 L 08/19/24 05:03 96 08/19/24 05:00 87 L 08/19/24 04:44 50 L 18 150/91 H 94 08/19/24 03:29 96 08/19/24 03:28 88 L 08/19/24 03:04 74 18 148/91 H 94 08/19/24 02:47 92 08/19/24 02:07 94 08/19/24 01:57 66 08/19/24 01:49 36.8 C 77 19 196/106 H 97 O2 Del Method O2 Flow Rate 08/19/24 14:45 Room Air 08/19/24 14:14 Room Air 08/19/24 13:45 Room Air 08/19/24 13:25 Room Air 08/19/24 13:15 Room Air 08/19/24 13:05 Room Air 08/19/24 12:55 Room Air 08/19/24 12:50 Room Air 08/19/24 12:47 08/19/24 12:40 Room Air 08/19/24 12:35 Room Air 08/19/24 12:30 08/19/24 12:30 Room Air 08/19/24 12:20 Room Air 08/19/24 12:10 Room Air 08/19/24 12:09 08/19/24 12:00 Room Air 08/19/24 11:50 Room Air 08/19/24 11:40 Room Air 08/19/24 11:30 Oxymask 6 08/19/24 11:20 Oxymask 6 08/19/24 11:15 Oxymask 6 08/19/24 09:23 Room Air 08/19/24 09:08 Room Air 08/19/24 09:00 Room Air 08/19/24 07:00 Room Air 08/19/24 06:09 08/19/24 05:03 Nasal Cannula 2 08/19/24 05:00 Room Air 08/19/24 04:44 Room Air 08/19/24 03:29 Nasal Cannula 2 08/19/24 03:28 Room Air 08/19/24 03:04 Room Air 08/19/24 02:47 Room Air 08/19/24 02:07 Room Air 08/19/24 01:57 08/19/24 01:49 Room Air Pain Intensity Upper Medial Abdomen: Pain Intensity: 2 Transfer of Care Handoff Completed per policy Notes Mental Status: alert / awake / arousable and participated in evaluation Patient Amnestic to Procedure: Yes Nausea / Vomiting: adequately controlled Pain: adequately controlled Airway Patency, RR, SpO2: stable & adequate BP & HR: stable & adequate Hydration State: stable & adequate Anesthetic Complications: no major complications apparent and Pt Satisfied with anesthetic care
[2024-08-19] MEDS: KETOROLAC 30 MG/ML VIAL IV PRN (20:09)
[2024-08-20] MEDS: INFLUENZA VACC TS2024-25(6m+)/PF (IIV3) 0.5mL Syr IM ONE (08:51)
[2024-08-20] MEDS: ENOXAPARIN INJ 40 MG/0.4 ML SYR SQ SCH (08:51)
--- NOTE | 2024-08-20 12:02 | Discharge Summary ---
Date of Service August 20, 2024 Admission HPI Per Admitting Provider Simon is a 43 year old otherwise healthy male who presented to ED initially yesterday with upper abdominal/chest pain that started at 6 am. Had pain medication and pain improved and was discharged. Presented back to ED this morning with persistent pain that is not improving. Denies fever, chills, nausea, vomiting, changes in bowel habits, diarrhea, constipation, blood in stools, black/tarry stools, difficulty urinating. Describes pain as sharp stabbing constant pain in upper abdomen bilaterally with some radiation to around his back. No history of gallbladder problems. No blood thinning agents. No history of abdominal surgery. Pain was 8/10 on arrival now 5/10 after pain medication. Principal Diagnosis Acute cholecystitis Discharge Data Allergies Allergy/AdvReac Type Severity Reaction Status Date / Time cat dander Allergy Intermediate sneezing, Unverified 08/19/24 09:21 itchy watery eyes strawberry Allergy Intermediate Hives Unverified 08/19/24 09:21 Consultations 08/19/24 07:10 Consult General Surgery Stat Procedures Performed Operation Date: 08/19/24 08:40 Actual Procedures p Laparoscopic Cholecystectomy - Gonzalo Mcgarry MD Ordered Studies 08/19/24 01:57 CT abd pelvis IV con only Stat CT chest diagnostic w con Stat 08/19/24 02:46 US gallbladder Stat Hospital Course (1) Acute cholecystitis: patient was seen in the emergency department and taken to the operating room for a laparoscopic cholecystectomy, the details of which are dictated in a separate operative note. Postoperatively he was transferred in stable condition to the PACU and subsequently to the floor. During his hospitalization, he was advanced as tolerated in diet. Pain control was with IV and subsequently oral pain medication. DVT prophylaxis with SCD boots, early ambulation, Lovenox. By the date of discharge, he was tolerating a regular diet, not requiring any IV pain medication, and he was discharged home in stable condition. He will follow-up in clinic in 2 weeks. Total Time Total Time Spent Total Time Spent (In Minutes): 30 minutes Discharge Plan Discharge Items Patient Disposition: Home - Self-Care Reason For Visit: POSTOP LAP LAYA Discharge Diagnosis: Acute calculous cholecystitis Activity: Per Instructions section Lifting: No more than 10 pounds Sexual Activity: Wait until after follow-up appointment Exercise/Sports: Wait until after follow-up appointment Non-emergency contact: Primary Care Provider and Surgeon Call non-emergency contact if: you have any medication questions, your pain is not controlled, your pain is concerning for you, you have a fever, your temperature is above 101, your wound has increased redness, your wound has increased drainage and your wound pain has increased Follow-up/Referrals: Bertha Champagne PA-C [Physician Gear Cutter] - (2 week follow-up) PCP,NO [Primary Care Provider] - Diet: Regular Addtl Attending Provider Instructions: Post-Surgical ~Discharge Instructions Activity Recommendations: - lifting limitation: (20 pounds for 2 weeks), - exercise/sex/sports limit: (nonstrenuous for 2 weeks), - driving or machine use limit: (none for 1 week or until pain free and no longer taking narcotic pain medication), - Shower/bathe limit: (may shower beginning tomorrow) Diet: - Resume previous diet SPECIAL CARE INSTRUCTIONS: - May shower. Let water run over area and pat dry. - Leave surgical glue on incisions, this will fall off on its own. - Call the surgeon's office with any questions or concerns - - (ex. temperature higher than 101 degrees F, excessive bleeding or pain). MEDICATIONS: - Resume previous medications unless instructed otherwise by your surgeon. - May alternate extra strength Tylenol and Ibuprofen as needed for mild to moderate pain -650 mg Tylenol every 6 hours as needed - Ibuprofen 600 mg every 6 hours as needed with food - Percocet 1 every 6 hours, as needed for moderate to severe pain - Recommend daily stool softener (Colace) while taking narcotic pain medication to prevent constipation or straining. Drink plenty of water daily. FOLLOW UP VISIT: - If not already scheduled, please call the office to schedule a two week follow-up appointment. Office number Pending Studies at Discharge: Yes (gallbladder pathology, will be reviewed at postop visit) Stand-Alone Forms: My [employer], Smoking Cessation Medications and DC Order Prescriptions: New oxycodone-acetaminophen [Percocet] 5-325 mg tablet 1 tab PO Q6H PRN (Reason: pain) Qty: 10 0RF Continued multivitamin [Daily Multi-Vitamin] Tablet 1 tab PO QAM Discharge Orders: Discharge Order (Routine); Ordered 08/20/24 Ordered By: Gonzalo Mcgarry Admission Data Admit Date/Time: 08/19/24 11:32 Attending Provider: Gonzalo Mcgarry Admit Provider: Gonzalo Mcgarry Primary Care Provider: PCP,NO Other Providers: Gonzalo Mcgarry
== END 2024-08-20 13:29 | disposition home or self-care (01) ==
LOC: ED 01:47 → OR 09:13 → 3W 09:13